=== PATIENT | female | born 1955 | race African-American/Black ===

== ENCOUNTER 2017-09-03 12:27 | Observation (INO) | payer SELFPAY ==
[~2017-09-03] VITALS: Ht 170.2 cm; Wt 109.1 kg
[2017-09-03] VITALS (7 sets, daily range): BP systolic 134–140; BP diastolic 74–79; PULSE 64–86; RESP 16–20; TEMP 96.7–98.3; O2SAT 95–98
[~2017-09-03 12:27] MED LIST: ASPI81 PO; GUAI100S6 PO; LEVO.1 PO; PROVENTIL HFA INH; VENTAER INH; ZITH250T PO
[2017-09-03] MEDS ORDERED: ASPIRIN 81 MG CHEW TAB PO ONE (12:45)
[2017-09-03] MEDS ORDERED: SODIUM CHLORIDE 0.9% FLUSH 10 ML FLUSH IVF PRN (12:45)
[2017-09-03] MEDS ORDERED: SYNT112T PO (12:46)
[2017-09-03] MEDS ORDERED: CELE200C PO (12:46)
--- NOTE | 2017-09-03 12:47 | PD ---
HPI Chief Complaint: Chest Pain Time Seen by Provider: 12:36 Travel History International Travel<30 days: Yes Contact w/Intl Traveler<30days: Yes Traveled to known affect area: Yes History of Present Illness HPI 62-year-old female says she had a sudden onset of chest pain about 45 minutes ago area and it was a substernal pain was fairly persistent. She was not short of breath. Did not radiate. She was not diaphoretic. She rates the pain as a 6 initially gone down considerably since then. She does not recall having pain like this before. She has no known heart disease. She did have an episode of chest pain in 2007 and was evaluated in the chest pain center with normal results. She does not smoke. She has no diabetes or hypertension. He says the pain was cramp like and fairly persistent. She does not have a history of exertional chest pain. She did finish a course of prednisone and Z-Car yesterday for bronchitis PFSH Past Medical History Cardiovascular Problems: Yes High Cholesterol: Yes Diabetes: No Thyroid Disease: Yes (TAKES SYNTROID 0.1MG PO Q D) Past Surgical History Section: Yes (X1) Social History Alcohol Use: No Tobacco Use: No Substance Use: No Allergies-Medications (Allergen,Severity, Reaction): Coded Allergies: No Known Allergies (Verified Adverse Reaction, Unknown, 09/03/17) Reported Meds & Prescriptions Reported Meds & Active Scripts Active Reported Celebrex (Celecoxib) 200 Mg Cap Unknown Dose PO DAILY Synthroid (Levothyroxine Sodium) 112 Mcg Tab 112 Mcg PO DAILY Review of Systems General / Constitutional: No: Fever, Chills Eyes: No: Diploplia, Blurred Vision HENT: No: Headaches, Vertigo Cardiovascular: Positive: Chest Pain or Discomfort, No: Palpitations Respiratory: No: Cough, Shortness of Breath Gastrointestinal: No: Nausea, Vomiting Genitourinary: No: Urgency Musculoskeletal: No: Myalgias Skin: No Rash Neurologic: No: Weakness Physical Exam Narrative GENERAL: Well-developed female SKIN: Focused skin assessment warm/dry. HEAD: Atraumatic. Normocephalic. EYES: Pupils equal and round. No scleral icterus. No injection or drainage. ENT: No nasal bleeding or discharge. Mucous membranes pink and moist. NECK: Trachea midline. No JVD. CARDIOVASCULAR: Regular rate and rhythm. No murmur appreciated. RESPIRATORY: No accessory muscle use. Clear to auscultation. Breath sounds equal bilaterally. GASTROINTESTINAL: Abdomen soft, non-tender, nondistended. Hepatic and splenic margins not palpable. MUSCULOSKELETAL: No obvious deformities. No clubbing. No cyanosis. No edema. NEUROLOGICAL: Awake and alert. No obvious cranial nerve deficits. Motor grossly within normal limits. Normal speech. PSYCHIATRIC: Appropriate mood and affect; insight and judgment normal. Data Data Last Documented VS Vital Signs Date Time Temp Pulse Resp B/P (MAP) Pulse Ox O2 Delivery O2 Flow Rate FiO2 09/03/17 12:35 98.2 77 18 136/74 (94) 96 09/03/17 12:35 Room Air Orders Orders Electrocardiogram (09/03/17 12:43) Basic Metabolic Panel (Bmp) (09/03/17 12:43) Complete Blood Count With Diff (09/03/17 12:43) Magnesium (Mg) (09/03/17 12:43) Prothrombin Time / Inr (Pt) (09/03/17 12:43) Act Partial Throm Time (Ptt) (09/03/17 12:43) Troponin I (09/03/17 12:43) Chest, Single Ap (09/03/17 12:43) Ecg Monitoring (09/03/17 12:43) Iv Access Insert/Monitor (09/03/17 12:43) Oximetry (09/03/17 12:43) Oxygen Administration (09/03/17 12:43) Aspirin Chew (Aspirin Chew) (09/03/17 12:45) Sodium Chloride 0.9% Flush (Ns Flush) (09/03/17 12:45) Admit Order (Ed Use Only) (09/03/17 13:32) Labs Laboratory Tests Test 09/03/17 12:40 White Blood Count 14.3 TH/MM3 Red Blood Count 4.33 MIL/MM3 Hemoglobin 11.6 GM/DL Hematocrit 35.3 % Mean Corpuscular Volume 81.6 FL Mean Corpuscular Hemoglobin 26.9 PG Mean Corpuscular Hemoglobin Concent 32.9 % Red Cell Distribution Width 14.6 % Platelet Count 449 TH/MM3 Mean Platelet Volume 5.9 FL Neutrophils (%) (Auto) 73.7 % Lymphocytes (%) (Auto) 21.5 % Monocytes (%) (Auto) 3.3 % Eosinophils (%) (Auto) 0.6 % Basophils (%) (Auto) 0.9 % Neutrophils # (Auto) 10.5 TH/MM3 Lymphocytes # (Auto) 3.1 TH/MM3 Monocytes # (Auto) 0.5 TH/MM3 Eosinophils # (Auto) 0.1 TH/MM3 Basophils # (Auto) 0.1 TH/MM3 CBC Comment DIFF FINAL Differential Comment Prothrombin Time 10.8 SEC Prothromb Time International Ratio 1.0 RATIO Activated Partial Thromboplast Time 25.7 SEC Blood Urea Nitrogen 23 MG/DL Creatinine 0.75 MG/DL Random Glucose 104 MG/DL Calcium Level 8.5 MG/DL Magnesium Level 2.3 MG/DL Sodium Level 140 MEQ/L Potassium Level 3.5 MEQ/L Chloride Level 107 MEQ/L Carbon Dioxide Level 27.6 MEQ/L Anion Gap 5 MEQ/L Estimat Glomerular Filtration Rate 94 ML/MIN Troponin I LESS THAN 0.02 NG/ML MDM Medical Decision Making Medical Screen Exam Complete: Yes Emergency Medical Condition: Yes Medical Record Reviewed: Yes Differential Diagnosis Differential includes coronary artery disease, reflux, GERD, atypical chest pain Narrative Course EKG shows sinus rhythm. Troponin is normal. Chest x-ray negative. Patient will be admitted to chest pain center for further evaluation of her chest pain Diagnosis Primary Impression: Chest pain Admitting Information Admitting Physician Requests: Observation James Lora MD Sep 03, 2017 12:47
[2017-09-03 12:53] LABS: AUTOMATED NEUTROPHIL # 10.5 TH/MM3 (1.8-7.7); BASOPHIL # 0.1 TH/MM3 (0-0.2); BASOPHIL % 0.9 % (0.0-2.0); EOSINOPHIL # 0.1 TH/MM3 (0-0.4); EOSINOPHIL % 0.6 % (0.0-4.0); HEMATOCRIT 35.3 % (35.0-46.0); LYMPH % 21.5 % (9.0-44.0); LYMPHOCYTE # 3.1 TH/MM3 (1.0-4.8); MEAN CELL VOLUME 81.6 FL (80.0-100.0); MEAN CORPUSCULAR HEMOGLOBIN 26.9 PG (27.0-34.0); MEAN CORPUSCULAR HGB CONC 32.9 % (32.0-36.0); MONO % 3.3 % (0.0-8.0); NEUT % 73.7 % (16.0-70.0); PLATELET COUNT 449 TH/MM3 (150-450); RED BLOOD COUNT 4.33 MIL/MM3 (4.00-5.30); RED CELL DISTRIBUTION WIDTH 14.6 % (11.6-17.2); WHITE BLOOD COUNT 14.3 TH/MM3 (4.0-11.0)
[2017-09-03 13:00] LABS: HEMO FLAGS DIFF FINAL
[2017-09-03 13:02] LABS: CHLORIDE 107 MEQ/L (98-107); POTASSIUM 3.5 MEQ/L (3.5-5.1); SODIUM (NA) 140 MEQ/L (136-145)
[2017-09-03 13:05] LABS: ANION GAP 5 MEQ/L (5-15); BICARBONATE 27.6 MEQ/L (21.0-32.0); BLOOD UREA NITROGEN 23 MG/DL (7-18); MAGNESIUM 2.3 MG/DL (1.5-2.5)
[2017-09-03 13:07] LABS: APTT (PATIENT) 25.7 SEC (24.3-30.1); PROTHROMBIN TIME - PATIENT 10.8 SEC (9.8-11.6)
[2017-09-03 13:08] LABS: GLOMERULAR FILTRATION RATE 94 ML/MIN (>89)
--- NOTE | 2017-09-03 13:53 | RADRPT ---
EXAM DATE/TIME: 09/03/2017 12:49 [facility] COMPARISON: CHEST PA & LAT, November 26, 2010, 18:23. INDICATIONS : Chest pain. MEDICAL HISTORY : chronic bronchitis SURGICAL HISTORY : None. ENCOUNTER: Initial ACUITY: 1 day PAIN SCORE: 2/10 LOCATION: Bilateral chest FINDINGS: Portable AP view of the chest demonstrates a normal-sized cardiac silhouette. No effusion, consolidat ion, or pneumothorax is visualized. The bones and soft tissues demonstrate no acute abnormality. CONCLUSION: No acute cardiopulmonary abnormality is identified. Denzel Trinh MD on September 03, 2017 at 13:43 Board Certified Radiologist. This report was verified electronically.
[2017-09-03] MEDS ORDERED: TEMAZEPAM 15 MG CAP PO PRN (14:00)
[2017-09-03] MEDS ORDERED: SODIUM CHLORIDE 0.9% FLUSH 10 ML FLUSH IV FLUSH PRN (14:00)
[2017-09-03] MEDS ORDERED: ONDANSETRON HCL 4 MG/2 ML VIAL IV PUSH PRN (14:00)
[2017-09-03] MEDS ORDERED: MORPHINE SULFATE 4 MG/ML INJ IV PUSH PRN (14:00)
[2017-09-03] MEDS ORDERED: ACETAMINOPHEN/HYDROcodone 325 MG/7.5 MG TAB PO PRN (14:00)
[2017-09-03] MEDS ORDERED: ACETAMINOPHEN 500 MG CPLT PO PRN (14:00)
[2017-09-03] MEDS ORDERED: NITROGLYCERIN 0.4 MG SL 25 TABS/BTL SL PRN (14:00)
--- NOTE | 2017-09-03 14:24 | HHI.HP ---
HPI Service [facility] Primary Care Physician Ivana Katz MD Admission Diagnosis CHEST PAIN Diagnoses: (1) Chest pain Chief Complaint: Chest pain Travel History International Travel<30 Days: Yes Contact w/Intl Traveler <30 Da: Yes Traveled to Known Affected Are: Yes History of Present Illness Written by Holger Tovar, acting as scribe for Dr. Hamilton on 09/03/17 at 14: 14. 62-year-old female with known history of hyperlipidemia, hypothyroidism who presented to hospital because of chest discomfort. Patient states that she was driving today and developed a cramping type sensation in the middle part of her chest continue to escalate. Because the pain did not go away and continued to worsen, she drove herself to the ER for evaluation. She states that while she was in the waiting room her chest discomfort did resolve. Her pain started approximately 12:00 today and resolved around 12:30 today. She denied any nausea, vomiting, radiation to neck, back, shoulder, arm, denies any lightheadedness, dizziness, shortness of breath. Patient states that she has gotten intermittent chest discomfort which is exerting himself, however whenever she rests it would go away. Records indicate patient did have chest pain center evaluation in 2007. At that time she underwent a exercise stress test which was negative for any ischemia. Patient indicates that she has been treated recently for upper respiratory infection. She has had sinus congestion , cough with minimal production. She went to urgent care proxy 6 days ago and was prescribed a Z-Car and steroid Dosepak. She has completed those yesterday. She still experiences some cough at this time. Patient does have increased risk factors and it was recommended by the ER physician that the patient be observed in the chest pain center. Review of Systems Respiratory: COMPLAINS OF: Cough, Sputum production Cardiovascular: COMPLAINS OF: Chest pain Except as stated in HPI: all other systems reviewed are Neg Past Family Social History Past Medical History Hyperlipidemia Hypothyroidism Past Surgical History Reported Medications Reported Meds & Active Scripts Active Reported Celebrex (Celecoxib) 200 Mg Cap Unknown Dose PO DAILY Synthroid (Levothyroxine Sodium) 112 Mcg Tab 112 Mcg PO DAILY Allergies: Coded Allergies: No Known Allergies (Verified Allergy, Unknown, 09/03/17) Family History Reviewed is significant for father having Parkinson's and TB. Social History Patient denies any tobacco, alcohol or illicit drugs Physical Exam Vital Signs Vital Signs Date Time Temp Pulse Resp B/P (MAP) Pulse Ox O2 Delivery O2 Flow Rate FiO2 09/03/17 12:35 98.2 77 18 136/74 (94) 96 09/03/17 12:35 96 Room Air 09/03/17 12:35 18 96 Room Air 09/03/17 12:35 96 Room Air Physical Exam GENERAL: Well-developed, mildly obese with BMI 37.8, in no acute distress. alert and orientated HEENT: Head is normocephalic without any lesions or masses noted. Facial features are symmetric. Eyes: Pupils equal round reactive to light. Extraocular muscles are intact. Conjunctivae were clear. Oropharyngeal: Pharynx without any erythema edema. Tongue is midline without deviation. Buccal mucosa is moist without any masses or lesions NECK: Supple without any masses. Trachea midline no deviation. No JVD, no bruits are appreciated CARDIAC: Regular rhythm, regular rate. S1/S2 are heard. No murmurs gallops or rubs. LUNGS: Clear to auscultation bilaterally. No wheeze, rhonchi or rales. No use of accessory muscles on inspiration or expiration. ABDOMEN: Soft, nontender. Nondistended. Bowel sounds heard in all 4 quadrants. No organomegaly or masses. Negative rebound, negative guarding EXTREMITIES: No edema, pulses are equal bilaterally. No cyanosis or clubbing NEUROLOGY: Mood and affect appear appropriate. Cranial nerves II through XII grossly intact. Muscle strength 5/5 in upper and lower extremities bilaterally. Deep tendon reflexes are 2+ in upper and lower extremities bilaterally. Laboratory Laboratory Tests Test 09/03/17 12:40 White Blood Count 14.3 Red Blood Count 4.33 Hemoglobin 11.6 Hematocrit 35.3 Mean Corpuscular Volume 81.6 Mean Corpuscular Hemoglobin 26.9 Mean Corpuscular Hemoglobin Concent 32.9 Red Cell Distribution Width 14.6 Platelet Count 449 Mean Platelet Volume 5.9 Neutrophils (%) (Auto) 73.7 Lymphocytes (%) (Auto) 21.5 Monocytes (%) (Auto) 3.3 Eosinophils (%) (Auto) 0.6 Basophils (%) (Auto) 0.9 Neutrophils # (Auto) 10.5 Lymphocytes # (Auto) 3.1 Monocytes # (Auto) 0.5 Eosinophils # (Auto) 0.1 Basophils # (Auto) 0.1 CBC Comment DIFF FINAL Differential Comment Prothrombin Time 10.8 Prothromb Time International Ratio 1.0 Activated Partial Thromboplast Time 25.7 Blood Urea Nitrogen 23 Creatinine 0.75 Random Glucose 104 Calcium Level 8.5 Magnesium Level 2.3 Sodium Level 140 Potassium Level 3.5 Chloride Level 107 Carbon Dioxide Level 27.6 Anion Gap 5 Estimat Glomerular Filtration Rate 94 Troponin I LESS THAN 0.02 Result Diagram: 09/03/17 1240 09/03/17 1240 Imaging Last Impressions Chest X-Ray 09/03/17 1243 Signed Impressions: Service Date/Time: , September 03, 2017 12:49 - CONCLUSION: No acute cardiopulmonary abnormality is identified. MD Brodie Garcia VTE Risk Assessment Brodie VTE Risk Assessment: Mod/High Risk (score >= 2) Caprini Risk Assessment Model Point Value = 1 Point Value = 2 Point Value = 3 Point Value = 5 Age 41-60 Minor surgery BMI > 25 kg/m2 Swollen legs Varicose veins or History of unexplained or recurrent spontaneous Oral contraceptives or hormone replacement Sepsis (< 1 month) Serious lung disease, including pneumonia (< 1 month) Abnormal pulmonary function Acute myocardial infarction Congestive heart failure (< 1 month) History of inflammatory bowel disease Medical patient at bed rest Age 61-74 Arthroscopic surgery Major open surgery (> 45 min) Laparoscopic surgery (> 45 min) Malignancy Confined to bed (> 72 hours) Immobilizing plaster cast Central venous access Age >= 75 History of VTE Family history of VTE Factor V Leiden Prothrombin [id number] Lupus anticoagulant Anticardiolipin antibodies Elevated serum homocysteine Heparin-induced thrombocytopenia Other congenital or acquired thrombophilia Stroke (< 1 month) Elective arthroplasty Hip, pelvis, or leg fracture Acute spinal cord injury (< 1 month) Prophylaxis Regimen Total Risk Factor Score Risk Level Prophylaxis Regimen 0-1 Low Early ambulation 2 Moderate Order ONE of the following: *Sequential Compression Device (SCD) *Heparin 5000 units SQ BID 3-4 Higher Order ONE of the following medications: *Heparin 5000 units SQ TID *Enoxaparin/Lovenox 40 mg SQ daily (WT < 150 kg, CrCl > 30 mL/min) *Enoxaparin/Lovenox 30 mg SQ daily (WT < 150 kg, CrCl > 10-29 mL/min) *Enoxaparin/Lovenox 30 mg SQ BID (WT < 150 kg, CrCl > 30 mL/min) AND/OR *Sequential Compression Device (SCD) 5 or more Highest Order ONE of the following medications: *Heparin 5000 units SQ TID (Preferred with Epidurals) *Enoxaparin/Lovenox 40 mg SQ daily (WT < 150 kg, CrCl > 30 mL/min) *Enoxaparin/Lovenox 30 mg SQ daily (WT < 150 kg, CrCl > 10-29 mL/min) *Enoxaparin/Lovenox 30 mg SQ BID (WT < 150 kg, CrCl > 30 mL/min) AND *Sequential Compression Device (SCD) Assessment and Plan Assessment and Plan //Chest pain - Patient with increased risk factors to include age, body habitus, female, hyperlipidemia - We'll continue to rule patient out with serial cardiac enzymes and serial EKGs - If patient ruled out for any acute coronary event. Will pursue stress test rule out any underlying ischemia - Continue aspirin, nitroglycerin as needed, Lortab/morphine for pain - Continue oxygen as needed //Leukocytosis - Patient is afebrile, Likely secondary to recent steroid use - We'll monitor for any infection - Chest x-rays without any signs of pneumonia - We'll check urinalysis //Hypothyroidism - Continue replacement therapy //Hyperlipidemia - Check lipid panel //DVT prevention - Sequential compression devices Code Status Full code Discussed Condition With Discussed with patient, nursing staff, ER physician This note was transcribed by fidelia Tovar. I, Dr. Mendoza Hamilton personally performed the history, physical exam, and medical decision making; and confirmed the accuracy of the information in the transcribed note. Authenticated by Dr. Mendoza Hamilton on 09/03/17 at 16:13. Holger Tovar Sep 03, 2017 14:24 Mendoza Hamilton MD Sep 03, 2017 16:13
[2017-09-03] MEDS ORDERED: RESP: ALBUTEROL 2.5 MG/IPRATROPIUM 0.5 MG NEB (PRN) NEB (14:30)
[2017-09-03] MEDS ORDERED: guaiFENesin/DEXTROMETHORPHAN 200 MG/20 MG/10 ML CUP PO PRN (14:30)
[2017-09-03] MEDS: SODIUM CHLORIDE 0.9% FLUSH 10 ML FLUSH IV FLUSH SCH (20:29)
[2017-09-03 21:20] LABS: CREATINE KINASE 57 U/L (26-192)
[2017-09-04] VITALS: BP 115/55; PULSE 75; RESP 16; TEMP 98.5; O2SAT 96
[2017-09-04 04:00] VITALS: BP 123/61; PULSE 74; RESP 16; TEMP 98.5; O2SAT 96
[2017-09-04] MEDS ORDERED: LEVOTHYROXINE SODIUM 112 MCG TAB PO SCH (06:00)
[2017-09-04 08:07] LABS: AUTOMATED NEUTROPHIL # 8.6 TH/MM3 (1.8-7.7); BASOPHIL # 0.1 TH/MM3 (0-0.2); BASOPHIL % 0.5 % (0.0-2.0); EOSINOPHIL # 0.2 TH/MM3 (0-0.4); EOSINOPHIL % 1.9 % (0.0-4.0); HEMATOCRIT 35.7 % (35.0-46.0); HEMO FLAGS DIFF FINAL; LYMPH % 22.8 % (9.0-44.0); LYMPHOCYTE # 2.8 TH/MM3 (1.0-4.8); MEAN CELL VOLUME 82.2 FL (80.0-100.0); MEAN CORPUSCULAR HEMOGLOBIN 26.8 PG (27.0-34.0); MEAN CORPUSCULAR HGB CONC 32.7 % (32.0-36.0); NEUT % 70.8 % (16.0-70.0); PLATELET COUNT 414 TH/MM3 (150-450); RED BLOOD COUNT 4.34 MIL/MM3 (4.00-5.30); RED CELL DISTRIBUTION WIDTH 14.4 % (11.6-17.2); WHITE BLOOD COUNT 12.3 TH/MM3 (4.0-11.0)
[2017-09-04 08:14] LABS: POTASSIUM 3.8 MEQ/L (3.5-5.1)
[2017-09-04 08:20] VITALS: BP 114/62; PULSE 82; RESP 18; TEMP 98.5; O2SAT 96
[2017-09-04 08:22] LABS: MAGNESIUM 2.2 MG/DL (1.5-2.5)
[2017-09-04] MEDS: SODIUM CHLORIDE 0.9% FLUSH 10 ML FLUSH IV FLUSH SCH (09:00)
[2017-09-04] MEDS ORDERED: ASPIRIN 325 MG TAB PO SCH (09:00)
[2017-09-04] MEDS ORDERED: SODIUM CHLORID 0.9% 500 ML INJ 500 ML IV ONE (09:30)
[2017-09-04] MEDS ORDERED: REGADENOSON INJ 0.4 MG/5 ML SYR IV ONE (09:46)
--- NOTE | 2017-09-04 09:48 | RADRPT ---
EXAM DATE/TIME: 09/03/2017 18:47 [facility] COMPARISON: No previous studies available for comparison. INDICATIONS : Substernal chest pain. Angina. DOSE: 30.1 mCi Tc99m Myoview at stress. 30 mCi Tc99m Myoview at rest. 0.4 mg Lexiscan STRESS SYMPTOMS: Short of breath. EJECTION FRACTION: 43% MEDICAL HISTORY : Hypothyroidism. SURGICAL HISTORY : section. ENCOUNTER: Initial ACUITY: 1 day PAIN SCALE: 6/10 LOCATION: Substernal chest TECHNIQUE: The patient underwent pharmacologic stress with infusion of prescribed dose. Continuous ECG tracing was monitored during stress. Gated SPECT imaging was performed after stress and conventional SPECT i maging was performed at rest. The examination was performed on a SPECT/CT scanner, both attenuation and non-corrected datasets were reviewed. FINDINGS: Perfusion is better at stress than rest. Small fixed defect in the anterior wall towards the apex. M oderate gut activity does obscure the inferior wall. The depressed ejection fraction with mild global hypokinesis. CONCLUSION: Negative for stress-induced ischemia.. Depressed ejection fraction with global hypokinesis. RISK CATEGORY: Low (<1% Annual Mortality Rate) Eliezer Trevino MD FACR on September 04, 2017 at 9:45 Board Certified Radiologist. This report was verified electronically.
[2017-09-04 10:00] VITALS: O2SAT 96
--- NOTE | 2017-09-04 10:05 | HHI.DCPOC ---
Discharge Care Plan Diagnosis: (1) Chest pain Goals to Promote Your Health * To prevent worsening of your condition and complications * To maintain your health at the optimal level Directions to Meet Your Goals Take your medications as prescribed Follow your dietary instruction Follow activity as directed Keep your appointments as scheduled Take your immunizations and boosters as scheduled If your symptoms worsen call your PCP, if no PCP go to Urgent Care Center or Emergency Room Smoking is Dangerous to Your Health. Avoid second hand smoke Call the 24-hour hour crisis hotline for domestic abuse at Holger Tovar Sep 04, 2017 10:05
[2017-09-04 10:09] LABS: HDL CHOLESTEROL 69.9 MG/DL (40.0-60.0)
[2017-09-04] MEDS ORDERED: PANT20 PO (11:00)
[2017-09-04 12:19] VITALS: BP 119/63; PULSE 85; RESP 18; TEMP 97.5; O2SAT 98
[2017-09-04] MEDS ORDERED: ASPI81TA23 PO (14:06)
[2017-09-04] MEDS ORDERED: LIPI10TA PO (14:06)
[2017-09-04 14:31] LABS: ALT (GPT) 21 U/L (10-53); AST (GOT) 8 U/L (15-37)
--- NOTE | 2017-09-04 14:35 | EKG ---
Date Performed: 09/03/2017 Time Performed: 12:34:25 PTAGE: 62 years EKG: Sinus rhythm NONSPECIFIC T-WAVE ABNORMALITY BORDERLINE ECG Since PREVIOUS TRACING , no significant change noted PREVIOUS TRACIN04/15/2008 05.25 DOCTOR: Ann Marie Mayfield Interpretating Date/Time 09/04/2017 14:33:38
--- NOTE | 2017-09-04 14:36 | EKG ---
Date Performed: 09/03/2017 Time Performed: 15:36:37 PTAGE: 62 years EKG: Sinus rhythm NONSPECIFIC T-WAVE ABNORMALITY BORDERLINE ECG Since PREVIOUS TRACING , no significant change noted PREVIOUS TRACIN09/03/2017 12.34 DOCTOR: Ann Marie Mayfield Interpretating Date/Time 09/04/2017 14:34:39
--- NOTE | 2017-09-04 14:36 | EKG ---
Date Performed: 09/03/2017 Time Performed: 19:49:43 PTAGE: 62 years EKG: Sinus rhythm LOW QRS VOLTAGE IN PRECORDIAL LEADS BORDERLINE ECG Since PREVIOUS TRACING , no significant change noted PREVIOUS TRACIN09/03/2017 15.36 DOCTOR: Ann Marie Mayfield Interpretating Date/Time 09/04/2017 14:35:46
--- NOTE | 2017-09-04 14:37 | TR ---
Date Performed: 09/04/2017 Time Performed: 08:48:23 DOCTOR: Ann Marie Mayfield DRUG LIST: CLINICAL HISTORY: REASON FOR TEST: REASON FOR ENDING: OBSERVATION: CONCLUSION: Lexiscan stress test was performed under standard four minute protocol. Radionuclid e was injected one minute prior to ending the test. No electrocardiographic abormalities were present to suggest ischemia. Nuclear imaging and interpretation are pending. COMMENTS:
--- NOTE | 2017-09-05 00:47 | HHI.PR ---
Subjective Remarks Date of service 09/04/17. Patient seen the morning of 09/04/17. Says she is feeling right. Denies any chest pain or shortness of breath. Says she feels like going home. Discussed decreased ejection fraction, recommended following with the primary care, getting echocardiogram as well as referral to cardiology Objective Vital Signs Date Time Temp Pulse Resp B/P (MAP) Pulse Ox O2 Delivery O2 Flow Rate FiO2 09/04/17 12:19 97.5 85 18 119/63 (81) 98 09/04/17 10:00 96 21 09/04/17 08:20 98.5 82 18 114/62 (79) 96 09/04/17 04:00 98.5 74 16 123/61 (81) 96 I/O 09/04/17 09/04/17 09/04/17 09/05/17 09/05/17 09/05/17 07:00 15:00 23:00 07:00 15:00 23:00 Intake Total 480 ml Balance 480 ml Intake Oral 480 ml # Voids 2 3 # Bowel Movements 1 Result Diagram: 09/04/17 0733 09/04/17 0733 Imaging Last Impressions Chest X-Ray 09/03/17 1243 Signed Impressions: Service Date/Time: August 12:49 - CONCLUSION: No acute cardiopulmonary abnormality is identified. Denzel Trinh MD Myocardial Perfusion Scan Nuc Med 09/03/17 0000 Signed Impressions: Service Date/Time: August 18:47 - CONCLUSION: Negative for stress-induced ischemia.. Depressed ejection fraction with global hypokinesis. RISK CATEGORY: Low (<1%% Annual Mortality Rate) Eliezer Trevino MD FACR Objective Remarks GENERAL: sitting up in bed. Appears comfortable. SKIN: Warm and dry. HEAD: Normocephalic. EYES: No scleral icterus. No injection or drainage. NECK: Supple, trachea midline. No JVD. CARDIOVASCULAR: Regular rate and rhythm without murmurs, gallops, or rubs. RESPIRATORY: Breath sounds equal bilaterally. No accessory muscle use. GASTROINTESTINAL: Abdomen soft, non-tender, nondistended. MUSCULOSKELETAL: No cyanosis, or edema. BACK: Nontender without obvious deformity. No CVA tenderness. A/P Assessment and Plan //Chest pain - Patient with increased risk factors to include age, body habitus, female, hyperlipidemia - We'll continue to rule patient out with serial cardiac enzymes and serial EKGs - If patient ruled out for any acute coronary event. Will pursue stress test rule out any underlying ischemia - Continue aspirin, nitroglycerin as needed, Lortab/morphine for pain - Continue oxygen as needed = Stress test performed and low risk. However indication of low ejection fraction 43%. Have started patient on aspirin, statin, with recommendation to follow with primary care, obtain echocardiogram. //Leukocytosis - Patient is afebrile, Likely secondary to recent steroid use - We'll monitor for any infection - Chest x-rays without any signs of pneumonia -Patient without any dysuria. Etc. doses improving. Likely secondary to stress. //Hypothyroidism - Continue replacement therapy //Hyperlipidemia -LDL 110. Patient started on statin. LFTs normal. //DVT prevention - Sequential compression devices Discharge Planning Discharge home in good condition. Activity ad emily. Diet heart healthy. Please see discharge medication list. Follow-up primary care. Mendoza Hamilton MD Sep 05, 2017 00:47
== END 2017-09-04 14:29 | disposition home or self-care (01) ==
LOC: PHED 12:27 → PHEDA 13:33 → PH3B 14:54
PROVIDERS: ADMIT Internal Medicine; ATTEND Internal Medicine
DX: R07.89 Other chest pain (principal); D72.829 Elevated white blood cell count, unspecified; R06.02 Shortness of breath; R09.81 Nasal congestion; R05 Cough; J42 Unspecified chronic bronchitis; I20.9 Angina pectoris, unspecified; E78.5 Hyperlipidemia, unspecified; E03.9 Hypothyroidism, unspecified; Z79.899 Other long term (current) drug therapy
CPT/HCPCS: 71010; 78452; 80048; 80061; 82550; 83735; 84450; 84460; 84484; 85025; 85610; 85730; 93005; 93017; 94664; 96360; 99285; A9502; G0378; J2785; J7040